=== PATIENT | male | born 1950 | race Caucasian/White ===

== ENCOUNTER 2019-04-20 11:23 | Outpatient (REF) | payer MEDICARE, SELFPAY ==
[2019-04-20 11:40] LABS: Abs Immature Grans 0.05 k/cumm (0.0-0.09); Absolute Eosinophil Count 0.04 k/cumm (0.0-0.7); Absolute Lymphocyte Count 0.93 k/cumm (1.2-3.4); Absolute Monocyte Count 1.61 k/cumm (0.11-0.7); Absolute Neutrophil Count 10.09 k/cumm (1.2-6.7); Basophils % 0.2; Eosinophils % 0.3; HCT 37.2 % (40.0-50.0); HGB 11.9 g/dL (13.5-17.5); Immature Grans % 0.4 %; Lymphocytes % 7.3; Mean Corpuscular Hemoglobin 31.2 pg (27.0-33.0); Mean Corpuscular Volume 97.4 fL (80-95); Mean Platelet Volume 7.9 fL (8.0-11.0); Monocytes % 12.6; Neutrophils % 79.2; RBC 3.82 m/cumm (4.50-6.00); RBC Distribution Width 13.4 % (11.8-14.1); White Blood Cell Count 12.74 k/cumm (4.4-10.8)
[2019-04-20 11:42] LABS: Absolute Basophil Count 0.03 k/cumm (0.0-0.2)
[2019-04-20 11:48] LABS: ALT 12 U/L (16-63); AST 11 U/L (15-37); Albumin 2.4 g/dL (3.4-5.0); Alkaline Phosphatase 78 U/L (46-116); Anion Gap 5.7 mmol/L (3-11); BUN 12 mg/dL (7-18); CO2 35.3 mmol/L (21.0-32.0); CREATININE 0.73 mg/dL (0.70-1.30); Chloride 98 mmol/L (98-107); Glucose 110 mg/dL (74-106); Magnesium 1.9 mg/dL (1.8-2.4); Potassium 4.2 mmol/L (3.5-5.1); Sodium 139 mmol/L (136-145); Total Protein 7.5 g/dL (6.4-8.2)
[2019-04-20 11:59] LABS: Diff Comment Diff Reviewed; Platelet Count 530 x1000/uL (130-400); RBC Morphology Normal
== END 2019-04-20 11:43 ==
LOC: LBN 11:23
PROVIDERS: Visit Provider Internal Medicine Medical Oncology
DX: C34.02 Malignant neoplasm of left main bronchus (principal)
CPT/HCPCS: 80053; 83735; 85025

== ENCOUNTER 2019-04-26 09:09 | Outpatient (CLI) | payer MEDICARE, SELFPAY ==
[2019-04-26 09:39] LABS: Absolute Basophil Count 0.01 k/cumm (0.0-0.2); Absolute Eosinophil Count 0.06 k/cumm (0.0-0.7); Absolute Lymphocyte Count 0.75 k/cumm (1.2-3.4); Absolute Monocyte Count 0.57 k/cumm (0.11-0.7); Absolute Neutrophil Count 9.66 k/cumm (1.2-6.7); Basophils % 0.1; Eosinophils % 0.5; HCT 37.2 % (40.0-50.0); HGB 11.9 g/dL (13.5-17.5); Immature Grans % 0.9 %; Lymphocytes % 6.7; Mean Corpuscular Hemoglobin 31.2 pg (27.0-33.0); Mean Corpuscular Volume 97.6 fL (80-95); Mean Platelet Volume 8.4 fL (8.0-11.0); Monocytes % 5.1; Neutrophils % 86.7; Platelet Count 335 x1000/uL (130-400); RBC 3.81 m/cumm (4.50-6.00); RBC Distribution Width 13.4 % (11.8-14.1); White Blood Cell Count 11.14 k/cumm (4.4-10.8)
[2019-04-26 09:51] LABS: ALT 14 U/L (16-63); AST 13 U/L (15-37); Albumin 2.5 g/dL (3.4-5.0); Alkaline Phosphatase 76 U/L (46-116); Anion Gap 4.3 mmol/L (3-11); BUN 14 mg/dL (7-18); Bilirubin, Total 1.4 mg/dL (0.2-1.0); CO2 35.7 mmol/L (21.0-32.0); CREATININE 0.72 mg/dL (0.70-1.30); Chloride 99 mmol/L (98-107); Glucose 115 mg/dL (74-106); Magnesium 1.8 mg/dL (1.8-2.4); Potassium 4.2 mmol/L (3.5-5.1); Sodium 139 mmol/L (136-145); Total Protein 7.2 g/dL (6.4-8.2)
== END 2019-04-26 09:29 ==
PROVIDERS: Visit Provider Internal Medicine Medical Oncology
DX: C34.02 Malignant neoplasm of left main bronchus (principal)
CPT/HCPCS: 36415; 80053; 83735; 85025

== ENCOUNTER 2019-05-03 08:00 | Outpatient (CLI) | payer MEDICARE, SELFPAY ==
[2019-05-03 08:40] LABS: Abs Immature Grans 0.01 k/cumm (0.0-0.09); Absolute Eosinophil Count 0.02 k/cumm (0.0-0.7); HCT 34.1 % (40.0-50.0); Mean Corp. HGB Concentration 32.3 g/dL (32.0-36.0); Mean Corpuscular Hemoglobin 30.9 pg (27.0-33.0); Mean Corpuscular Volume 95.8 fL (80-95); Mean Platelet Volume 9.1 fL (8.0-11.0); Platelet Count 146 x1000/uL (130-400); RBC 3.56 m/cumm (4.50-6.00); RBC Distribution Width 13.3 % (11.8-14.1)
[2019-05-03 09:00] LABS: ALT 13 U/L (16-63); AST 17 U/L (15-37); Albumin 2.5 g/dL (3.4-5.0); Alkaline Phosphatase 73 U/L (46-116); Anion Gap 8.1 mmol/L (3-11); BUN 15 mg/dL (7-18); Bilirubin, Total 2.8 mg/dL (0.2-1.0); CO2 31.9 mmol/L (21.0-32.0); CREATININE 0.73 mg/dL (0.70-1.30); Calcium 8.5 mg/dL (8.5-10.1); Chloride 96 mmol/L (98-107); Glucose 107 mg/dL (74-106); Magnesium 1.5 mg/dL (1.8-2.4); Potassium 3.5 mmol/L (3.5-5.1); Sodium 136 mmol/L (136-145); Total Protein 6.8 g/dL (6.4-8.2)
[2019-05-03 09:25] LABS: White Blood Cell Count 0.53 k/cumm (4.4-10.8)
[2019-05-03 09:26] LABS: Absolute Neutrophil Count 0.12 k/cumm (1.2-6.7)
[2019-05-03 09:27] LABS: Absolute Monocyte Count 0.07 k/cumm (0.11-0.7); Atypical Lymphocytes % 3; Diff Comment Manual Differential
[2019-05-03 09:28] LABS: Anisocytosis 1+; Polychromasia Present
== END 2019-05-03 08:20 ==
PROVIDERS: PCP Family Medicine; Visit Provider Internal Medicine Medical Oncology
DX: C34.02 Malignant neoplasm of left main bronchus (principal)
CPT/HCPCS: 36415; 80053; 83735; 85025